=== PATIENT | female | born 1990 | race African-American/Black ===

== ENCOUNTER 2018-01-22 19:53 | Inpatient (IN) | payer MEDICAID ==
[~2018-01-22] VITALS: Ht 154.9 cm; Wt 49.9 kg
[2018-01-22] MEDS ORDERED: SODIUM CHLORIDE 0.9% 1,000 ML IV ONE (20:38)
[2018-01-22 21:55] LABS: BASOPHILS % 0.3 % (0.0-2.0); EOSINOPHILS % 1.1 % (0.0-5.0); HEMOGLOBIN. 12.4 g/dL (12.0-16.0); LYMPHOCYTES % 30.1 % (20.0-50.0); MEAN CORPUSCULAR HEMOGLOBIN 32.8 pg (28.0-32.0); MEAN CORPUSCULAR VOLUME 97.7 fL (81.0-99.0); MEAN PLATELET VOLUME 9.4 fl (7.4-10.4); MONOCYTES % 7.6 % (2.0-8.0); NEUTROPHILS % 60.9 % (40.0-76.0); PLATELET 214 x1000/uL (130-400); RED BLOOD CELL COUNT 3.78 mill/uL (4.2-5.4)
[2018-01-22 21:57] LABS: PARTIAL THROMBOPLASTIN TIME 29.2 sec (23.4-31.0); PROTHROMBIN TIME 10.4 sec (9.1-11.1)
[2018-01-22 21:58] LABS: CHLORIDE 107 mEq/L (98-107)
[2018-01-22 22:21] LABS: B-HCG QUANTITATIVE 8130 mIU/mL (<3)
[2018-01-22 23:42] LABS: CLARITY URINE CLEAR (CLEAR); COLOR URINE YELLOW (YELLOW); KETONES URINE NEGATIVE (NEGATIVE); LEUKOCYTE ESTERASE URINE NEGATIVE (NEGATIVE); NITRITE URINE NEGATIVE (NEGATIVE); OCCULT BLOOD URINE 3+ (NEGATIVE); PROTEIN URINE NEGATIVE (NEGATIVE); SPECIFIC GRAVITY URINE 1.008 (1.005-1.030); UROBILINOGEN URINE 0.2 E.U./dL (0.2-1.0)
[2018-01-23] MEDS ORDERED: POTASSIUM CHLORIDE 20MEQ TABLET SR PO ONE
[2018-01-23] MEDS ORDERED: ONDANSETRON HCL 4MG/2ML INJ IV PRN ×2 (00:30→11:00)
[2018-01-23] MEDS ORDERED: HYDROMORPHONE HCL/PF 2MG/ML CPJ IV PRN ×2 (00:30→11:30)
[2018-01-23] MEDS: ACETAMINOPHEN 325MG TABLET PO PRN ×2 (01:03→18:04)
[2018-01-23 03:37] VITALS: BP 101/63
[2018-01-23 04:00] VITALS: BP 101/63
[2018-01-23] MEDS: DEXT 5%/0.45% NACL KCL 10MEQ/L 1,000 ML IV SCH ×3 (04:27→20:50)
[2018-01-23 08:00] VITALS: BP 80/46
[2018-01-23] MEDS ORDERED: FENTANYL CITRATE/PF 50MCG/ML 2ML VIAL ONE (10:20)
[2018-01-23] MEDS ORDERED: MIDAZOLAM HCL 2 MG/2 ML VIAL ONE (10:20)
[2018-01-23] MEDS ORDERED: PROPOFOL 200MG/20ML VIAL IV ONE (10:23)
[2018-01-23] MEDS ORDERED: LIDOCAINE HCL 1% 20ML VIAL (Pyxis) INJ ONE (10:24)
[2018-01-23] MEDS ORDERED: ROCURONIUM BROMIDE 10MG/ML VIAL 5ML IV ONE (10:25)
[2018-01-23] MEDS ORDERED: SODIUM CHLORIDE 0.9% 10ML VIAL ONE (10:35)
[2018-01-23] MEDS ORDERED: CEFAZOLIN SODIUM 1000MG/VIAL ONE (10:35)
[2018-01-23] MEDS ORDERED: METOCLOPRAMIDE HCL 10MG/2ML VIAL ONE (10:45)
[2018-01-23] MEDS ORDERED: ONDANSETRON HCL 4MG/2ML INJ ONE (10:45)
[2018-01-23] MEDS ORDERED: NEOSTIGMINE METHYLSULFATE 1MG/ML 10 ML VIAL ONE (10:54)
[2018-01-23] MEDS ORDERED: GLYCOPYRROLATE 0.2 MG/ML 2ML VIAL ONE ×2 (10:55→11:07)
[2018-01-23] MEDS ORDERED: INFLUENZA VIRUS VACCINE(AFLURIA) 0.5ML SYR IM ONE (11:00)
[2018-01-23] MEDS ORDERED: ACETAMINOPHEN 650MG SUPP PR PRN (11:00)
[2018-01-23] MEDS ORDERED: TETANUS, DIPHTHERIA, PERTUSSIS VAC/PF 0.5ML (>7YR OLD) IM ONE (11:00)
[2018-01-23] MEDS: HYDROMORPHONE HCL/PF 2MG/ML CPJ IV PRN (11:57)
[2018-01-23] MEDS ORDERED: FENTANYL CITRATE/PF 50MCG/ML 2ML VIAL IV SCH ×2 (12:15→12:25)
[2018-01-23] MEDS: KETOROLAC 30MG/ML VIAL IV PRN ×2 (14:48→20:51)
[2018-01-23 16:00] VITALS: BP 95/56
[2018-01-23 20:00] VITALS: BP 91/55
[2018-01-24] VITALS: BP 87/51
[2018-01-24] MEDS: ACETAMINOPHEN 325MG TABLET PO PRN (01:15)
[2018-01-24 04:00] VITALS: BP 101/61
[2018-01-24] MEDS: KETOROLAC 30MG/ML VIAL IV PRN (04:22)
[2018-01-24] MEDS: SIMETHICONE 80MG TABLET CHEW PO PRN ×3 (04:30→17:07)
[2018-01-24 07:53] LABS: BASOPHILS % 0.2 % (0.0-2.0); EOSINOPHILS % 0.3 % (0.0-5.0); HEMATOCRIT. 37.5 % (36.0-48.0); HEMOGLOBIN. 12.5 g/dL (12.0-16.0); LYMPHOCYTES % 15.9 % (20.0-50.0); MEAN CORPUSCULAR HEMOGLOBIN 32.7 pg (28.0-32.0); MEAN CORPUSCULAR VOLUME 98.3 fL (81.0-99.0); MEAN PLATELET VOLUME 9.4 fl (7.4-10.4); MONOCYTES % 7.4 % (2.0-8.0); NEUTROPHILS % 76.2 % (40.0-76.0); PLATELET 213 x1000/uL (130-400); RED BLOOD CELL COUNT 3.82 mill/uL (4.2-5.4)
[2018-01-24 08:00] VITALS: BP 97/53
[2018-01-24] MEDS: DEXT 5%/0.45% NACL KCL 10MEQ/L 1,000 ML IV SCH (08:15)
[2018-01-24] MEDS: HYDROMORPHONE HCL/PF 2MG/ML CPJ IV PRN (08:15)
[2018-01-24] MEDS ORDERED: IBUPROFEN 600MG TABLET PO PRN (10:45)
[2018-01-24 12:00] VITALS: BP 91/63
[2018-01-24] MEDS: HYDROCODONE/ACETAMINOPHEN 5/325MG TABLET PO PRN ×2 (13:05→17:08)
[2018-01-24] MEDS ORDERED: BISACODYL 10MG SUPP PR PRN (13:30)
[2018-01-24 16:00] VITALS: BP 101/70
[2018-01-24 17:08] VITALS: BP 91/63
== END 2018-01-24 19:25 | disposition left against medical advice (07) | DRG 545 ==
LOC: ER 19:53 → 6EST 23:33 → ENRESERV 01-23 01:57
PROVIDERS: ADMIT Specialist; ATTEND Specialist
PROC: 10T20ZZ Resection of Products of Conception, Ectopic, Open Approach (ICD-10-PCS; 2018-01-23)
PROC: 0DNU0ZZ Release Omentum, Open Approach (ICD-10-PCS; 2018-01-23)
PROC: 0UB50ZZ Excision of Right Fallopian Tube, Open Approach (ICD-10-PCS; principal; 2018-01-23 09:00)
DX: O00.101 Right tubal pregnancy without intrauterine pregnancy (principal); F17.210 Nicotine dependence, cigarettes, uncomplicated; Z53.21 Procedure and treatment not carried out due to patient leaving prior to being seen by health care provider; O26.891 Other specified pregnancy related conditions, first trimester; O21.9 Vomiting of pregnancy, unspecified; O99.331 Smoking (tobacco) complicating pregnancy, first trimester; K59.00 Constipation, unspecified; Z98.891 History of uterine scar from previous surgery
CPT/HCPCS: 36415; 76801; 84702; 86850; 86900; 86920; 88305; 90715; 96360; 99285; A4216; J0690; J1170; J1885; J2250; J2405; J2704; J2710; J2765; J3010; J3490; J7030

== ENCOUNTER 2018-01-26 10:26 | Emergency (ER) | payer MEDICAID ==
[~2018-01-26] VITALS: Ht 154.9 cm; Wt 50.0 kg
[2018-01-26 13:00] VITALS: BP 111/57
[2018-01-26] MEDS ORDERED: HYDROCODONE/ACETAMINOPHEN 5/325MG TABLET PO ONE (13:00)
== END 2018-01-26 13:24 | disposition home or self-care (01) ==
LOC: ER 10:26
DX: G89.18 Other acute postprocedural pain (principal); R10.2 Pelvic and perineal pain; N93.9 Abnormal uterine and vaginal bleeding, unspecified; R05 Cough; Z98.890 Other specified postprocedural states
CPT/HCPCS: 99283